=== PATIENT | male | born 1950 | race Caucasian/White ===

== ENCOUNTER 2017-10-14 03:19 | Emergency (ER) | payer SELFPAY ==
[2017-10-14] MEDS ORDERED: DIPHTH/TETANUS/ACEL. PERTUSSIS IM ONLY ONE (03:43)
[2017-10-14] MEDS ORDERED: KETAMINE HCL 500 MG/5 ML VIAL ONE (03:44)
[2017-10-14] MEDS ORDERED: CEFEPIME HCL 2 GM VIAL ONE (03:45)
[2017-10-14] MEDS ORDERED: NS(*) 0.9% 100 ML ADDVANT BAG 0 ML ONE (03:45)
[2017-10-14] MEDS ORDERED: NS(*) 0.9% 250 ML BAG 250 ML ONE (03:51)
[2017-10-14] MEDS ORDERED: DIPHTH/TETANUS/ACEL. PERTUSSIS IM ONE (04:00)
[2017-10-14 04:10] LABS: INR 1.03
[2017-10-14 04:19] LABS: PLATELET COUNT, AUTOMATED 396 K/uL (150-450)
[2017-10-14] MEDS ORDERED: ERYTHROMYCIN OP OINT 5MG/GM TU OU ONE (04:25)
--- NOTE | 2017-10-14 04:36 | RADIOLOGY IMAGING REPORT ---
FACILITY: [facility] - [place], [place] PATIENT NAME: Fred Ballesteros : 1950 MR: [id number] V: [id number] EXAM DATE: ORDERING PHYSICIAN: WARD KEENAN TECHNOLOGIST: [place] [facility] [place] Fred Ballester[place] : 1950 Visit/Account:[id number] Date of Sevice: 10/14/2017 Portable chest: Indication: Inhalation injury. Technique: A single frontal film was obtained. Comparison: None. Lines and tubes: The tip of the ET tube is 3.6 cm above the elda. Skeletal and soft tissue structures: Intact and unremarkable. Heart and mediastinum: Within normal limits. Lung palma: Well-expanded. No focal opacities. No evidence of pulmonary edema. Pleural spaces: Unremarkable. Impression: The ET tube is in satisfactory position. No focal parenchymal or pleural abnormality is i dentified. Report Dictated By: Kan Almanzar MD at 10/14/2017 4:31 AM Report E-Signed By: Kan Almanzar MD at 10/14/2017 4:33 AM WSN:[id number]
[2017-10-14] MEDS: LR(*) 1000 ML BAG 1,000 ML IV PRN ×2 (04:44→04:55)
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
[2017-10-14 05:00] VITALS: BP 170/93
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
[2017-10-14] MEDS ORDERED: LR(*) 1000 ML BAG 2,000 ML ONE (05:31)
== END 2017-10-14 05:50 | disposition short-term general hospital (02) ==
LOC: MERGE 04:03 → ER 04:03
DX: T22.30XA Burn of third degree of shoulder and upper limb, except wrist and hand, unspecified site, initial encounter (principal)
CPT/HCPCS: 31500; 71045; 80305; 80320; 81001; 82803; 83605; 83690; 85025; 85610; 85730; 86850; 86900; 86901; 90471; 90715; 94002; 96360; 96361; 99291; C1758; J0692; J3490; J7050; J7120; 82040; 82247; 82310; 82374; 82435; 82565; 82947; 84075; 84132; 84155; 84295; 84450; 84460; 84520

== ENCOUNTER → 2017-10-14 | Outpatient (REF) | payer MEDICARE ==
[~2017-10-14] MED LIST: CLIN300C99 PO; CYC10 PO; HYDR-4309 PO; LOR5/325 PO; NO; PER PO; PRE10 PO; PRED20TA6 PO
== END ==
LOC: AMB 04:29
PROVIDERS: ATTEND Nurse Practitioner
DX: T30.0 Burn of unspecified body region, unspecified degree (principal)

== ENCOUNTER → 2017-10-14 | Outpatient (CLI) | payer SELFPAY | LOC: AMB 02:37 | PROVIDERS: ATTEND Nurse Practitioner | DX: T32 Corrosions classified according to extent of body surface involved (principal); R09.02 Hypoxemia; T65.91XA Toxic effect of unspecified substance, accidental (unintentional), initial encounter; Y92.010 Kitchen of single-family (private) house as the place of occurrence of the external cause | CPT/HCPCS: A0425; A0433 ==